=== PATIENT | female | born 1980 | race Caucasian/White ===

== ENCOUNTER 2017-04-19 15:23 | Inpatient (IN) | payer OTHER ==
[~2017-04-19] VITALS: Ht 160 cm; Wt 42.2 kg
--- NOTE | ~2017-04-19 | PN ---
Unit #: [id number] #: [id number] Patient: GIANNI BA [id number] [facility] [address] [place] [address] [id number] MR#: [id number] NAME: GIANNI BA ROOM: [facility] Age: 36 Sex: F Admission Date: 04/19/2017 : 1980 Attending Physician: Heath Leigh M.D. Admitting Physician: Heath Leigh M.D. Primary Care Physician: Jordi Hernandez M.D. PEALUIS ANGEL PROGRESS NOTES DATE 04/24/2017 DISCUSSION Ms. Ba is a 36-year-old white female who was seen today and chart was reviewed and case was discussed with the staff. She has been anxious, withdrawn and rather seclusive to herself. Meanwhile, she has been doing better in her mood and daily functioning and has been cooperative with treatment recommendations. She has been taking medications and tolerating them fairly well with no reported side effects. MENTAL STATUS EXAMINATION Young white female who was casually dressed with fair personal hygiene and appears to be in no acute distress or discomfort. She was awake and alert with intact orientation. She denies any suicidal or homicidal ideation. Her insight and judgement remains slightly impaired. TREATMENT PLAN Will continue on current treatment protocol. Will monitor her response. Dictated by... Jose Canales/samantha TD: 04/24/2017 17:58 JOB #: [id number] [facility] PROGRESS NOTES Page 1 of 1 X Heath Leigh MD X PROGRESS NOTE
--- NOTE | ~2017-04-19 | A ---
[facility] Nutrition Therapy DATE: 04/22/17 Patient: GIANNI LANE Physician: XI Address: [address] [place] [address] #7 Room/Bed: [address], Zip: [place] [address] Admit Date: 04/19/17 Date of : [birth year] Height: 5 3 Weight: 92 [id number] NUTRITIONAL ASSESSMENT: REASON: LOW BMI (16.5), 2 NUTRITIONAL RISK POINTS - UNINTENTIONAL WEIGHT LOSS, CHEWING/SWALLOWING DIFFICULTIES, EATING DISORDER WITH ACTIVE SYMPTOMS PATIENT ADMITTED FOR SI ATTEMPT AND DEPRESSION PMH: SEIZURE DISORDER, BIPOLAR DISORDER Anthropometrics: HT: 63", WT: 93#, BMI: 16.5, %IBW: 81 Labs: 04/20/17- BUN: 8, CREA: 0.5, ALB: 3.4 Meds: PROTONIX, REMERON, LITHIUM, NEURONTIN Assessment: PATIENT IS A 36 Y/O FEMALE ADMITTED FOR SI ATTEMPT AND DEPRESSION. PATIENT IS CURRENTLY UNEMPLOYED, LIVES AT HOME WITH HER CHILDREN, SMOKES 1 PPD, HAS DAILY MARIJUANA USE, AND FREQUENT METH USE. UPON ADMIT PATIENT STATED A FAIR APPETITE WITH A 14# WEIGHT LOSS X LAST SEVERAL MONTHS, AND INSOMNIA. WEIGHT HX PER [employer] SHOWS FLUCTUATING WEIGHTS BETWEEN 90-108# OVER LAST SEVERAL YEARS, WITH HER UBW ~100#. NURSING REPORTED POOR PO INTAKES UPON ADMIT, HOWEVER SHE HAS SHOWN IMPROVEMENT AND NOW HAS GOOD INTAKES. PER NURSING ADMISSION REPORT PATIENT HAS DENTURES, REPORTED EATING DIFFICULTIES AND CHOKING SOMETIMES, AND NURSING SUSPECTED EATING DISORDER BEHAVIORS. PATIENT STATED SOMETIMES SHE WILL EAT NOTHING AT ALL AND SOMETHIES SHE WILL EAT A LOT AT ONCE, SHE HAS BEEN TRYING TO EAT ENTIRE MEALS WHILE AT FACILITY, AND THAT SHE HAS SOME GERD BUT DENIES ANY EATING DISORDER BEHAVIORS. PATIENT WILL HAVE DECREASED PO INTAKES AND APPETITE WHEN SHE IS EXPERIENCING DEPRESSION. SECURITY SUPPORT ANALYST HAS ORDERED AN APPETITE STIMULANT D/T PATIENT'S LOW BODY WEIGHT AND DECREASED APPETITE. THERE ARE NO SKIN OR GI ISSUES NOTED ATT. NURSING REPORTED NO EATING DISORDER BEHAVIOR EXHIBITED OVER THE WEEKEND. CURRENT PSYCH MEDS MAY CAUSE AN INCREASE IN WEIGHT AND APPETITE, WHICH IS DESIRED. PATIENT IS ON A REGULAR DIET AND THERE HAVE BEEN NO C/O CHEWING OR SWALLOWING DIFFICULTIES REPORTED. Dx: INADEQUATE NUTRIENT INTAKE R/T DEPRESSION, DRUG USE AEB LOW BMI, <90% IBW, SELF-REPORTED WEIGHT LOSS, DECREASED APPETITE, 3 NUTRIITONAL RISK POINTS Intervention: REGULAR DIET, LARGE PORTIONS, SUPPLEMENTS, MEDS PER MD, PSYCH Monitoring, Evaluation and Goals: 1. ADEQUATE PO INTAKES >50-75% OF MEALS 2. PREVENT, CORRECT MICRO/MACRO NUTRIENT DEFICIENCIES 3. WEIGHT; PROMOTE A STEADY WEIGHT GAIN TOWARDS A HEALTHY BMI OF 19-25, PREVENT FURTHER [facility] Nutrition Therapy DATE: 04/22/17 Patient: GIANNI LANE Physician: XI Address: [address] [place] [address] #7 Room/Bed: [address], Zip: [place] [address] Admit Date: 04/19/17 Date of : [birth year] Height: 5 3 Weight: 92 [id number] WEIGHT LOSS MONITOR: WEIGHTS, LABS, PO/FLUID INTAKES Recommendations: 1. CONTINUE REGULAR DIET TOLERATED. OFFER SNACKS BETWEEN MEALS. WILL INCREASE ENTREES TO LARGER PORTIONS AND ORDER ENSURE TID D/T NEED FOR INCREASED CALORIC INTAKE. 2. ENCOURAGE ADEQUATE PO, FLUID, AND SUPPLEMENT INTAKE 3. WEIGH PATIENT ROUTINELY (EVERY 3-4 DAYS) 4. IF PATIENT HAS C/O CHEWING/SWALLOWING DIFFICULTIES PLEASE CONSULT E LEARNING DESIGNER FOR FURTHER EVALUATION RD TO F/U PER PROTOCOL AND PRN R/T PATIENT MILD-MODERATELY COMPROMISED Respectfully, EDILMA TORIBIO, RD, LD Food [facility] Nutrition[facility] cc: client file
--- NOTE | ~2017-04-19 | PA ---
Unit #: [id number] #: [id number] Patient: GIANNI BA [id number] [place] [address] [id number] I MR#: [id number] NAME: GIANNI BA ROOM: P261 Age: 36 Sex: F Admission Date: 04/19/2017 : 1980 Date of Assessment: Attending Physician: Heath Leigh M.D. Admitting Physician: Heath Leigh M.D. Primary Care Physician: Jordi Hernandez M.D. PSYCHIATRIC ASSESSMENT DATE OF SERVICE 04/19/2017. IDENTIFYING DATA Ms. Ba is a 36-year-old single, white female who is a resident of [place], [place] and was self-referred to the hospital on a voluntary basis and was accompanied by her mother. CHIEF COMPLAINT "Depression and I have been having suicidal ideations." HISTORY OF PRESENT ILLNESS Ms. Ba is a 36-year-old white female with history of bipolar disorder, who was brought to the hospital with increasing depression, reports that she has been having suicidal ideation and that she has attempted to commit suicide yesterday by taking Lamictal, lithium, and Tylenol PM and she was with a jono for 5 years and she reports that she found him with another woman who has been diagnosed with hepatitis C. The patient reports that she cannot stop thinking about it and she wanted to kill herself last night. She reports that he also has been having sex with a friend of hers and reports increasing depression, anxiety, irritability, restlessness, feelings of hopelessness and helplessness, and suicidal ideation and as such, recommendation for inpatient level of care for safety and stabilization was made and the patient was transferred to us. SUBSTANCE ABUSE HISTORY The patient reports she has history of cannabis and amphetamine abuse, but denies any other substance abuse. PAST PSYCHIATRIC HISTORY The patient has had history of outpatient psychiatric treatment in the past and reports she has been diagnosed and treated for bipolar disorder. Currently, she has been on a combination of lithium, Lamictal, and Klonopin, and Neurontin. PAST MEDICAL HISTORY Seizure disorder. ALLERGIES Penicillin. PERSONAL AND SOCIAL HISTORY A 36-year-old white female who reports that she is single and unemployed, Unit #: [id number] #: [id number] Patient: GIANNI BA and lives at home with her children and has fairly decent social support system. MENTAL STATUS EXAMINATION Young white female who was casually dressed with fair personal hygiene, and appears to be in no acute distress or discomfort. She was awake and alert on interaction with intact orientation to time, place, and person. Her mood was anxious and depressed with a congruent affect. Her speech was slow and restricted in content. Her thought processes were disorganized with some looseness of associations and suicidal ideations. Her insight and judgment remain significantly impaired. DIAGNOSTIC IMPRESSION Psychiatric: Bipolar disorder, most recent episode depressed, recurrent, moderate, without psychotic features. Medical: Seizure disorder. Stressors: Moderate psychosocial stressors. TREATMENT PLAN 1. The patient has presented with history of mood disorder, and has been decompensating and will need inpatient hospitalization for safety and stabilization. We will start her back on her home medications. We will adjust the medications and monitor response. 2. Supportive therapy was provided to the patient. 3. Safe, structured, and nourishing environment will be provided. ESTIMATED LENGTH OF STAY 4 to 5 days. ABILITY TO HELP SELF Limited. WILLINGNESS TO HELP SELF The patient appears to be willing to help self. STRENGTHS 1. Communicative. 2. Cooperative. PROBLEMS 1. Chronic dysphoric symptoms. 2. Poor social support system. DISCHARGE CRITERIA This will be contingent upon the patient's ability to show resolution of her depression and anxiety and her ability to stay safe to herself, particularly after discharge from the hospital. Dictated by... Jose Canales/josi TD: 04/21/2017 11:06 JOB #: [id number] Unit #: [id number] #: [id number] Patient: GIANNI BA PSYCHIATRIC ASSESSMENT Page 1 of 1 X Heath Leigh MD PSYCHIATRIC ASSESSMENT
--- NOTE | ~2017-04-19 | DS ---
Unit #: [id number] #: [id number] [facility] [id number] [facility] [address] [place] [address] [id number] MR#: [id number] NAME: GIANNI BA ROOM: [facility] Age: 36 Sex: F Admission Date: 04/19/2017 : 1980 Discharge Date: 04/25/2017 Attending Physician: Heath Leigh M.D. Primary Care Physician: Jordi Hernandez M.D. DISCHARGE SUMMARY IDENTIFYING DATA Ms. Ba is a 36-year-old single white female, who is a resident of [place], [place], and was self-referred to the hospital on a voluntary basis and was accompanied by her mother. DISCHARGE DIAGNOSES Psychiatric: Bipolar disorder, most recent episode depressed, recurrent, moderate, without psychotic features; cannabis abuse, moderate; and methamphetamine abuse, moderate. Medical: None. Stressors: Moderate psychosocial stressors. HISTORY OF PRESENT ILLNESS Please see initial psychiatric evaluation for details. PAST PSYCHIATRIC HISTORY Please see initial psychiatric evaluation for details. PAST MEDICAL HISTORY Please see initial psychiatric evaluation for details. HOSPITAL COURSE The [facility] and was oriented to the hospital environment. Routine p.r.n. medications were initiated, and she was started back on her home medications; however, the patient was seen to be exhibiting very manipulative behavior as she has been using cannabis and methamphetamine and that she has been getting Klonopin from her outpatient provider and then she was wanting me to test her for HIV and hepatitis, which were done and actually, she was negative on all the hepatitis profile as well as on HIV, but then she was not wanting me to disclose her presentation here and her substance abuse to her outpatient provider including her primary care physician and psychiatrist and then she was also asking me to give her a prescription for Klonopin, even though her outpatient psychiatrist appointment is tomorrow, but she wanted me to give it to her and I told her that I would not be able to provide and that she should be able to get it from just one provider and I also encouraged that she needs to be honest with her provider about her history of substance abuse including cannabis and methamphetamine, particularly the one who has been giving her Klonopin and she was not really showing good insight into her situation and was showing a very manipulative behavior and was actively trying to mask and minimize her presentation. However, medications were maintained and since she was denying any suicidal ideations, it was decided that she will be discharged home and will continue treatment on an outpatient basis. Unit #: [id number] #: [id number] Patient: GIANNI BA DISCHARGE MEDICATIONS Klonopin 0.5 mg b.i.d. for anxiety, Lamictal 50 mg at bedtime for bipolar, lithium 750 mg at bedtime for bipolar, Neurontin 300 mg q.i.d., for anxiety, and Remeron 15 mg at bedtime for depression. DISCHARGE CONDITION Stable. PROGNOSIS Fair. Dictated by... Jose Canales/josi TD: 04/25/2017 18:11 JOB #: [id number] DISCHARGE SUMMARY Page 1 of 1 X Heath Leigh MD X DISCHARGE SUMMARY
--- NOTE | ~2017-04-19 | PN ---
Unit #: [id number] #: [id number] Patient: GIANNI BA [id number] [facility] [address] [place] [address] [id number] MR#: [id number] NAME: GIANNI BA. ROOM: [facility] Age: 36 Sex: F Admission Date: 04/19/2017 : 1980 Attending Physician: Heath Leigh M.D. Admitting Physician: Heath Leigh M.D. Primary Care Physician: Jose Galindo PROGRESS NOTES DATE April 21, 2017 DISCUSSION Ms. Ba is a 36-year-old white female, who was seen today and chart was reviewed and the case was discussed with the staff. She has been anxious, withdrawn, depressed, and rather seclusive to herself. Meanwhile, she has been cooperative with the treatment recommendations and she has been taking the medications and tolerating them well with no reported side effects. MENTAL STATUS EXAMINATION Young white female, who was casually dressed with fair personal hygiene and appears to be in no acute distress or discomfort. She was awake and alert on interaction with intact orientation. Her mood is anxious and depressed with a congruent affect. she denies any suicidal or homicidal ideations. Her insight and judgment remain slightly impaired. TREATMENT PLAN 1. We will continue her on her current medications and treatment protocol, and will monitor her response to the medications, and make further adjustments as needed. 2. We will continue to followup. Dictated by... Jose Canales/rosalia TD: 04/22/2017 11:37 JOB #: [id number] Unit #: [id number] #: [id number] Patient: GIANNI BA ABIODUN PROGRESS NOTES Page 1 of 1 X Heath Leigh MD PROGRESS NOTE
--- NOTE | ~2017-04-19 | PN ---
Unit #: [id number] #: [id number] Patient: GIANNI BA [id number] [facility] [address] [place] [address] [id number] I MR#: [id number] NAME: GIANNI BA. ROOM: [facility] Age: 36 Sex: F Admission Date: 04/19/2017 : 1980 Attending Physician: Heath Leigh M.D. Admitting Physician: Heath Leigh M.D. Primary Care Physician: Jose Galindo PROGRESS NOTES DATE 04/20/2017 DISCUSSION Ms. Ba is a 36 years old staff. She has been anxious, withdrawn and rather seclusive to herself. Meanwhile, she has been cooperative with treatment recommendations as she has been taking the medications and tolerating them fairly well with no reported side effects. MENTAL STATUS EXAMINATION Young white female who was casually dressed with fair personal hygiene, appears to be in no acute distress or discomfort. She was awake and alert with impaired attention and concentration. Her mood was anxious with congruent affect. She denies any suicidal or homicidal ideations. Her insight and judgement remains slightly impaired. TREATMENT PLAN 1. We will continue her on her current medications and treatment protocol. We will monitor her response and make further adjustments as needed. 2. We will continue to follow up. Dictated by... Jose Canales/tal TD: 04/22/2017 03:04 JOB #: [id number] Unit #: [id number] #: [id number] Patient: GIANNI BA PROGRESS NOTES Page 1 of 1 X Heath Leigh MD PROGRESS NOTE
--- NOTE | ~2017-04-19 | PN ---
Unit #: [id number] #: [id number] Patient: GIANNI BA [id number] [facility] [address] [place] [address] [id number] I MR#: [id number] NAME: GIANNI BA. ROOM: [facility] Age: 36 Sex: F Admission Date: 04/19/2017 : 1980 Attending Physician: Heath Liegh M.D. Admitting Physician: Heath Leigh M.D. Primary Care Physician: Jose Galindo PROGRESS NOTES DATE 04/23/2017 DISCUSSION Ms. Ba is a 36-year-old white female who was seen today and chart was reviewed and case was discussed with the staff. She has been anxious, withdrawn and seclusive to herself. Meanwhile, she has been cooperative with treatment recommendations as she has been taking the medications and tolerating them fairly well with no reported side effects. MENTAL STATUS EXAMINATION Young white female who was casually dressed with fair personal hygiene, appears to be in no acute distress or discomfort. She was awake and alert on interaction with intact orientation. Her mood was anxious with congruent affect. She denies any suicidal or homicidal ideations. Her insight and judgement remains slightly impaired. TREATMENT PLAN 1. We will continue her on her current treatment protocol. We will monitor her response to the medication and make further adjustments as needed. 2. We will continue to follow up. Dictated by... Jose Canales/tal TD: 04/24/2017 04:38 JOB #: [id number] Unit #: [id number] #: [id number] Patient: GIANNI BA ABIODUN PROGRESS NOTES Page 1 of 1 X Heath Leigh MD X PROGRESS NOTE
--- NOTE | ~2017-04-19 | PN ---
Unit #: [id number] #: [id number] Patient: GIANNI BA [id number] [facility] [address] [place] [address] [id number] I MR#: [id number] NAME: GIANNI BA. ROOM: [facility] Age: 36 Sex: F Admission Date: 04/19/2017 : 1980 Attending Physician: Heath Leigh M.D. Admitting Physician: Heath Leigh M.D. Primary Care Physician: Jose Galindo PROGRESS NOTES DATE 04/22/2017 DISCUSSION Ms. Ba is a 36-year-old white female who was seen today and chart was reviewed and case was discussed with the staff. She has been anxious, withdrawn and rather seclusive to herself and has been exhibiting persistent depressive symptoms. Meanwhile, she has been taking medications and tolerating them fairly well with no reported side effects. MENTAL STATUS EXAMINATION Young white female who was casually dressed with fair personal hygiene and appears to be in no acute distress or discomfort. She was awake and alert on interactions with intact orientation. Her mood was anxious with congruent affect. Her speech is slow and goal-directed. She denies any suicidal or homicidal ideations. Her insight and judgement remains slightly impaired. TREATMENT PLAN 1. Will continue on current medications and treatment protocol. Will monitor her response to the medications and make further adjustments as needed. 2. Will continue to follow up. Dictated by... Jose Canales/samantha TD: 04/23/2017 15:47 JOB #: [id number] Unit #: [id number] #: [id number] Patient: GIANNI BA ABIODUN PROGRESS NOTES Page 1 of 1 X Heath Leigh MD X PROGRESS NOTE
--- NOTE | ~2017-04-19 | EKG ---
PATIENT: GIANNI LANE UNIT #: [id number] Ventricular Rate: 77 BPM Atrial Rate: 77 BPM P-R Interval: 148 ms QRS Duration: 96 ms Q-T Interval: 386 ms QTC Calculation(Bezet): 436 ms P Sheffield: 52 degrees Calculated T Sheffield: 65 degrees Diagnosis Line: Normal sinus rhythm Diagnosis Line: Normal ECG Diagnosis Line: When compared with ECG of 26-APR-2016 01:22, Diagnosis Line: Incomplete right bundle branch block is no longer Diagnosis Line: Present Diagnosis Line: Confirmed by NIDIA WOOD MD ([id number]) on Diagnosis Line: 04/26/2017 7:28:21 AM INTERPRETING MD: ISRAEL GRIMM
--- NOTE | ~2017-04-19 | HP ---
Unit #: [id number] #: [id number] Patient: GIANNI LANE [id number] [place] [address] [id number] MR#: [id number] NAME: GIANNI LANE. ROOM: [facility] Age: 36 Sex: F Admission Date: 04/19/2017 : 1980 Attending Physician: Heath Leigh M.D. Admitting Physician: Heath Leigh M.D. Primary Care Physician: Jordi Hernandez M.D. HISTORY AND PHYSICAL HISTORY OF PRESENT ILLNESS The patient is a 36-year-old female admitted to [address] [place] [address] on 04/19/2017 for suicidal ideation. PAST MEDICAL HISTORY 1. Seizure disorder. 2. Nicotine dependence. 3. Underweight. PAST SURGICAL HISTORY Hysterectomy. SOCIAL HISTORY She is unemployed. She lives with her ex. She smokes 1 pack of cigarettes daily, uses marijuana 2 bottles per day, and methamphetamine every other week. FAMILY MEDICAL HISTORY Noncontributory. ALLERGIES Penicillin. CURRENT MEDICATIONS Klonopin, Lamictal, gabapentin, and lithium. REVIEW OF SYSTEMS CONSTITUTIONAL: No fever or chills. HEENT: Denies any sore throat, ear pain or runny nose. CARDIOVASCULAR: Denies chest pain, irregular heart rhythm or palpitations. CHEST: Denies shortness of breath or cough. No hemoptysis. GASTROINTESTINAL: Denies nausea, vomiting, diarrhea or chronic constipation. ENDOCRINE: Denies history of increased thirst or urination. No recent significant weight loss or gain. GENITOURINARY: Denies dysuria, frequency, or hematuria. SKIN: Denies any rashes. HEMATOLOGIC: Denies history of increased bleeding or bruising. MUSCULOSKELETAL: Denies any hot, swollen joints. No generalized muscle pain. NEUROLOGIC: Denies problems with vision or speech. No frequent, severe headaches. No numbness, tingling or weakness in any extremities. Denies loss of bladder or bowel control. Unit #: [id number] #: [id number] Patient: GIANNI LANE PHYSICAL EXAMINATION GENERAL: She is very thin but is awake, alert, and oriented in no acute distress. VITAL SIGNS: Temperature 98.0, heart rate 77, respirations 15, and blood pressure 115/77. HEIGHT: 5 feet 3. WEIGHT: 93 pounds. SKIN: Warm and dry without rash or lesion. HEENT: Normocephalic. TMs not viewed. Oral and nasal passages clear. Conjunctivae clear. PERRLA. EOMs intact. NECK: Supple without lymphadenopathy or thyromegaly. HEART: Regular rate and rhythm without murmur. LUNGS: Clear. ABDOMEN: Soft, nontender. : Not done. EXTREMITIES: No evidence of cyanosis, clubbing or edema. Moves all without focal deficit. NEUROLOGICAL: Grossly within normal limits. Cranial Nerves: II: Visual groves are intact. III, IV AND : Extraocular movements are intact. Pupils are equal, round and reactive to light. V: Facial sensation is grossly normal. VII: Facial movements and expression are normal. VIII: Auditory acuity grossly intact. IX, X: Uvula is midline. Phonation is normal. XI: Patient shrugs shoulders and turns head normally. XII: Tongue protrudes in the midline. Sensory and Motor Function: Sensory and motor sensation is grossly normal. Motor: moves all extremities well. IMPRESSION 1. Psychiatric admission. 2. Seizure disorder. 3. Smoker. 4. Underweight. RECOMMENDATIONS PSYCHIATRIC: Per psychiatrist. MEDICAL: No contraindication to participate in this facility activities. MEDICAL PROGNOSIS Fair. MEDICAL CONDITION Stable. Dictated by... Gavin Heller/danitza TD: 04/20/2017 15:49 JOB #: [id number] Unit #: [id number] #: [id number] Patient: GIANNI LANE [facility] HISTORY AND PHYSICAL Page 1 of 1 X SHAHLA MORGAN APRN HISTORY AND PHYSICAL
--- NOTE | ~2017-04-19 | CO ---
Unit #: [id number] #: [id number] Patient: GIANNI LANE [id number] [facility] [address] [place] [address] [id number] MR#: [id number] NAME: GIANNI LANE. ROOM: [facility] Age: 36 Sex: F Admission Date: 04/19/2017 : 1980 Attending Physician: Heath Leigh M.D. Primary Care Physician: Jordi Hernandez M.D. Consultation Date: 04/20/2017 CONSULTATION REPORT ORDERING PROVIDER Heath Leigh M.D. REASON FOR CONSULT BMI of 16.5. SUBJECTIVE The patient reports that when she is depressed she does not eat. She has lost about 15 pounds in her latest bout of depression, which is last several months. She denies any skin or hair changes, but does sometimes reports a racing heartbeat. She reports that since being admitted to [facility], she has been trying to eat her entire meals. She does however feel like her appetite is decreased. She denies anorexia or body dysmorphia. She does report some esophageal reflux that causes nausea, but she does not intentionally make herself throw up. OBJECTIVE Her examination is unremarkable other than being very thin. Her heart was regular rate and rhythm. ASSESSMENT Low body mass index. PLAN To get a thyroid panel, an EKG, start her on medication for reflux and an appetite stimulator if okay with Psychiatry. Dictated by... Gavin Heller/josi TD: 04/21/2017 13:03 JOB #: [id number] Unit #: [id number] #: [id number] Patient: GIANNI LANE CONSULTATION REPORT Page 1 of 1 X SHAHLA MORGAN APRN CONSULTATION REPORT
[~2017-04-19 15:23] MED LIST: ALBUTEROL17 GM; ALBUTEROL17 GM PO; AZITHROMYCIN1 GM PO; CELEXA20 MG PO; CIPRO PO; CLINDAMYCIN HC300 MG PO; DICLOFENAC; DULCOLAX5 MG PO; EFFEXOR50 MG PO; ERY-TAB500 MG PO; FAMOTIDINE PO; FLEXERIL10 M1 PO; FLINTSTONE VITAMIN; FLOMAX0.4 M1 PO; FLOMAX0.4 MG PO; IBUPROFEN800 MG PO; KLONOPIN; LITHIUM; LORCET HD CAPSU1 CA1 PO; LORTAB 10/500 T1 TAB PO; LORTAB 5/500 TA1 TA1 PO; NAPROXEN PO; NASAL DECONGEST30 MG PO; NEURONTIN; NO MEDICATIONS; PERCOCET 5-3251 TAB PO; PERCOCET 5/321 UDTAB PO; PHENERGAN PO; PHENERGAN PR; PHENERGAN25 M1 PO; PHENERGAN25 MG PO; PREDNISONE PO; PRENATAL FORMUL1 TA3 PO; PROMETHAZINE D118 ML; PROMETHAZINE D118 ML PO; SAPHRIS10 MG; SYMBICORT 160/4.6 GM; VISTARIL PO; VOLTAREN75 MG PO; ZANTAC PO; ZITHROMAX PO; ZOFRAN ODT4 MG SL; ZOFRAN PO
[2017-04-20 10:45] LABS: BASOPHIL% 0.7 % (0-2.5); EOSINOPHIL# 0.1 X10e3 (0-0.7); EOSINOPHIL% 1.3 % (0.0-7.0); HEMATOCRIT 41.6 % (35.0-45.0); HEMOGLOBIN 13.9 gm/dL (12.0-16.0); LYMPHOCYTE# 1.5 X10e3 (1.0-3.5); LYMPHOCYTE% 27.7 % (17.0-45.0); MEAN CELL VOLUME 92.4 FL (83-96); MEAN CORPUSCULAR HEMOGLOBIN 30.9 PG (28-34); MEAN CORPUSCULAR HGB CONC 33.4 g/dL (30-36); MEAN PLATELET VOLUME 9.1 FL (6.5-11.5); MONOCYTE# 0.6 X10e3 (0-1.0); NEUTROPHIL# 3.1 X10e3 (1.5-7.1); NEUTROPHIL% 59.3 % (40-75); PLATELET COUNT 229 X10e3 (140-420); RED CELL DISTRIBUTION WIDTH 12.8 % (11.0-15.5); WHITE BLOOD COUNT 5.3 X10e3 (4.0-10.5)
[2017-04-20 10:57] LABS: ALBUMIN SERUM 3.4 g/dL (3.5-5.0); BILIRUBIN,TOTAL 0.3 mg/dL (0.2-2.0); CALCIUM SERUM 8.5 mg/dL (8.4-10.2); CREATININE SERUM 0.5 mg/dL (0.6-1.4); GLOM FILT RATE Estimated 126.3 mL/min (>60); POTASSIUM 3.6 mmol/L (3.5-5.1); PROTEIN TOTAL SERUM 5.9 g/dL (6.0-8.3)
[2017-04-20 11:02] LABS: DIFF IND NO
[2017-04-22 12:42] LABS: URINE APPEARANCE TURBID; URINE BILIRUBIN NEG (NEG); URINE BLOOD NEG (NEG); URINE COLOR YELLOW; URINE GLUCOSE NEG (NEG); URINE KETONE NEG (NEG); URINE LEUKOCYTE ESTERASE NEG (NEG); URINE NITRATE NEG (NEG); URINE PH 8.5 (5-8); URINE PROTEIN NEG (NEG); URINE SPECIFIC GRAVITY 1.011 (1.003-1.035); URINE UROBILINOGEN 0.2 MG/DL (NEG)
[2017-04-22 12:54] LABS: AMPHETAMINE NEG (NEG); BARBITURATES NEG (NEG); BENZODIAZEPINES NEG (NEG); COCAINE NEG (NEG); MARIJUANA NEG (NEG); OPIATES NEG (NEG); TRICYCLIC ANTIDEPRESSANTS NEG (NEG); U METHADONE NEG (NEG)
[2017-04-24 06:21] LABS: HA AB IGM (HEPPAN) Nonreactive (()); HB CORE AB IGM (HEPPAN) Nonreactive (Nonreactive); HB S AG (HEPPAN) Nonreactive (Nonreactive); HEP C AB (HEPPAN) Nonreactive (Nonreactive); HEP C AB SIGNAL TO CUTOFF 0.01 ratio (<1.00)
== END 2017-04-25 12:00 | disposition home or self-care (01) | DRG 885 ==
LOC: P2L 15:23
PROVIDERS: Psychiatry & Neurology Psychiatry
DX: F31.32 Bipolar disorder, current episode depressed, moderate (principal); G40.909 Epilepsy, unspecified, not intractable, without status epilepticus; R45.851 Suicidal ideations; Z68.1 Body mass index [BMI] 19.9 or less, adult; F17.210 Nicotine dependence, cigarettes, uncomplicated; Z56.0 Unemployment, unspecified; R63.6 Underweight
CPT/HCPCS: 80053; 80074; 80178; 80307; 81003; 84443; 84703; 85025; 87806; 93005